=== PATIENT | female | born 2000 | race Caucasian/White ===

== ENCOUNTER 2021-01-06 11:52 | Outpatient (CLI) | payer OTHER ==
[2021-01-06 13:36] LABS: BASOPHILS % (AUTO) 1 % (0-1); EOSINOPHILS % (AUTO) 4 % (1-7); LYMPHOCYTES % (AUTO) 44 % (22-44); MEAN CORPUSCULAR HEMOGLOBIN 30.1 pg (27.0-34.8); MEAN CORPUSCULAR HGB CONC 33.1 g/dL (32.4-35.8); MONOCYTES % (AUTO) 8 % (2-9); NEUTROPHILS % (AUTO) 43 % (42-75); PLATELET COUNT 188 x10^3/uL (130-400); RED BLOOD COUNT 4.21 x10^6/uL (3.82-5.3); RED CELL DISTRIBUTION WIDTH 13.6 % (9.6-15.2)
[2021-01-06 13:40] LABS: MICROSCOPIC AUTO
[2021-01-06] MEDS ORDERED: IBUP200T64 PO (15:14)
[2021-01-06] MEDS ORDERED: FEXO180T72 PO (15:14)
[2021-01-06] MEDS ORDERED: ACET-1600 PO (15:14)
[2021-01-06] MEDS ORDERED: CHOL10003 PO (15:14)
[2021-01-06] MEDS ORDERED: CYAN250013 PO (15:14)
== END 2021-01-06 23:59 | disposition home or self-care (01) ==
LOC: STAR 11:52
PROVIDERS: ATTEND Obstetrics & Gynecology
DX: Z01.812 Encounter for preprocedural laboratory examination (principal); R10.2 Pelvic and perineal pain; N94.6 Dysmenorrhea, unspecified; N92.6 Irregular menstruation, unspecified; Z20.822 Contact with and (suspected) exposure to COVID-19
CPT/HCPCS: 36415; 81001; 82728; 83540; 83550; 84466; 85025; U0003; U0005

== ENCOUNTER 2021-01-13 05:47 | Day surgery (SDC) | payer OTHER ==
[~2021-01-13] VITALS: Ht 165.1 cm; Wt 59.7 kg
[~2021-01-13 05:47] MED LIST: ACET-1600 PO; CHOL10003 PO; CYAN250013 PO; FEXO180T72 PO; IBUP200T64 PO
[2021-01-13] MEDS ORDERED: LIDOCAINE-MPF 1%, 2ML INFIL ONE (06:30)
[2021-01-13] MEDS ORDERED: CHLORHEXIDINE 15 ML UDC PO ONE (06:30)
[2021-01-13] MEDS ORDERED: LACTATED RINGERS 1,000 ML IV SCH (06:30)
[2021-01-13] MEDS ORDERED: EPINEPHRINE 1 MG/ML, 1ML ONE ×2 (07:10→07:36)
[2021-01-13] MEDS ORDERED: BUPIVACAINE/PF 0.25% ONE (07:10)
[2021-01-13] MEDS ORDERED: MIDAZOLAM 1 MG/ML, 2ML ONE (07:13)
[2021-01-13] MEDS ORDERED: FENTANYL PF 250 MCG/5ML ONE (07:14)
[2021-01-13] MEDS ORDERED: KETOROLAC 30 MG/1 ML ONE (07:36)
[2021-01-13] MEDS ORDERED: DEXAMETHASONE 4 MG/ML, 1ML ONE (07:36)
[2021-01-13] MEDS ORDERED: PROPOFOL 10 MG/ML, 20ML ONE (07:36)
[2021-01-13] MEDS ORDERED: ROCURONIUM 10 MG/ML,10ML ONE (07:36)
[2021-01-13] MEDS ORDERED: ONDANSETRON 2MG/ML, 2ML ONE (07:36)
[2021-01-13] MEDS ORDERED: DIPHENHYDRAMINE 50 MG/ML, 1ML ONE (07:36)
[2021-01-13] MEDS ORDERED: SUGAMMADEX 200 MG/2 ML IVPush ONE (07:36)
[2021-01-13] MEDS ORDERED: CEFAZOLIN 1,000 MG ONE (07:36)
[2021-01-13] MEDS ORDERED: DIAZEPAM 5 MG/ML, 2ML IVPush PRN (08:00)
[2021-01-13] MEDS ORDERED: LORazepam 2 MG/ML, 1ML IVPush PRN (08:00)
[2021-01-13] MEDS ORDERED: MIDAZOLAM 1 MG/ML, 2ML IV PRN (08:00)
[2021-01-13] MEDS ORDERED: ONDANSETRON 2MG/ML, 2ML IVPush PRN (08:00)
[2021-01-13] MEDS ORDERED: FENTANYL PF 100 MCG/2ML IV PRN (08:00)
[2021-01-13] MEDS ORDERED: FENTANYL PF 100 MCG/2ML ONE (10:54)
== END 2021-01-13 12:30 | disposition home or self-care (01) ==
LOC: OUT 05:47
PROVIDERS: ATTEND Obstetrics & Gynecology
DX: N94.6 Dysmenorrhea, unspecified (principal); N93.9 Abnormal uterine and vaginal bleeding, unspecified; N80.3 Endometriosis of pelvic peritoneum; N83.02 Follicular cyst of left ovary; N83.8 Other noninflammatory disorders of ovary, fallopian tube and broad ligament; I49.8 Other specified cardiac arrhythmias; D89.40 Mast cell activation, unspecified; Z98.890 Other specified postprocedural states; Z80.3 Family history of malignant neoplasm of breast; Z80.41 Family history of malignant neoplasm of ovary; Z83.3 Family history of diabetes mellitus; Z83.42 Family history of familial hypercholesterolemia
CPT/HCPCS: 58662; 81025; 88305; J0171; J0690; J1100; J1200; J1885; J2250; J2405; J2704; J3010; J7120